=== PATIENT | female | born 2000 | race American Indian/Alaskan Native ===

== ENCOUNTER 2020-10-26 05:49 | Emergency (ER) | payer SELFPAY ==
[2020-10-26 08:33] LABS: Blood Urea Nitrogen 14 mg/dL (7-17); Calcium 9.6 mg/dL (8.4-10.2); Hemolysis Index 17
[2020-10-26 08:34] LABS: BUN/Creatinine Ratio 23
[2020-10-26 08:48] LABS: Hematocrit 39.4 % (30.3-42.9); Hemoglobin 13.1 gm/dl (10.1-14.3); Mean Corpuscular HGB Conc 33 % (30-34); Mean Corpuscular Volume 96 fl (79-97); Platelet Count 214 K/mm3 (140-440); Red Blood Count 4.09 M/mm3 (3.65-5.03); Red Cell Distribution Width 14.9 % (13.2-15.2)
[2020-10-26 10:12] LABS: Total Cells Counted 100
[2020-10-26 10:14] LABS: Large Platelets Few; Platelet Estimate Consistent w Auto; RBC Morphology Normal
== END 2020-10-26 12:00 ==
LOC: ED 05:49
DX: Z00.8 Encounter for other general examination (principal); Z53.21 Procedure and treatment not carried out due to patient leaving prior to being seen by health care provider
CPT/HCPCS: 36415; 80048; 80320; 84703; 85007; 85025; G0480